=== PATIENT | male | born 1930 | race Caucasian/White ===

== ENCOUNTER → 2016-12-25 | Outpatient (CLI) | payer MEDICARE, BC | END | disposition home or self-care (01) | LOC: PCVCCLINIC 13:06 | PROVIDERS: ATTEND Internal Medicine Cardiovascular Disease | DX: I73.9 Peripheral vascular disease, unspecified (principal); C61 Malignant neoplasm of prostate; E78.00 Pure hypercholesterolemia, unspecified; I10 Essential (primary) hypertension; I87.2 Venous insufficiency (chronic) (peripheral) | CPT/HCPCS: 80061; 93005; G0463 ==